=== PATIENT | female | born 1975 | race Caucasian/White ===

== ENCOUNTER 2017-06-07 16:24 | Emergency (ER) | payer OTHER ==
[~2017-06-07] VITALS: Ht 157.5 cm; Wt 49.5 kg
[~2017-06-07 16:24] MED LIST: AMITRIPTYLINE H25 M1 PO; CLOPIDOGREL; FLEXERIL 1010 MG/TAB PO; GABAPENTIN; NEURONTIN300 MG/CAP PO; NITROSTAT0.4 MG/TAB SL; PLAVIX 75MG TAB75 MG PO; THEO-24; TORADOL 10MG TA10 MG PO
[2017-06-07 16:31] VITALS: TEMP 98
[2017-06-07 17:07] LABS: BASO % 0.4 % (0.0-2.0); EOS # 0.2 (0.0-0.7); EOS % 1.3 % (0-4.0); GRAN # 7.4 (1.4-6.5); GRAN % 64.5 % (42.2-75.2); HEMATOCRIT 46.6 % (37.0-47.0); HEMOGLOBIN 16.3 g/dl (12.5-16.0); LYMPH # 3.1 (1.2-3.4); LYMPH % 27.5 % (20.0-51.0); MEAN CELL VOLUME 88 fl (80.0-100.0); MEAN CORPUSCULAR HEMOGLOBIN 31 pg (27.0-31.0); MEAN CORPUSCULAR HGB CONC 35 g/dl (33.0-37.0); MEAN PLATELET VOLUME 8.6 fl (7.4-10.4); MONO # 0.7 (0.1-0.6); MONO % 5.9 % (1.7-9.3); PLATELET COUNT 314 K/mm3 (130-400); RED BLOOD COUNT 5.27 M/mm3 (4.10-5.30); REDCELL DISTRIBUTION WIDTH-CV 12.5 % (11.5-14.5); WHITE BLOOD COUNT 11.4 K/mm3 (4.8-10.8)
[2017-06-07 17:24] LABS: ADJUSTED CALCIUM 9.3 mg/dL (8.4-10.2); ALANINE AMINOTRANSFERASE 21 U/L (9-52); ALBUMIN 4.8 gm/dL (3.5-5.0); ALKALINE PHOSPHATASE 84 U/L (50-136); ANION GAP 12 mmol/L (7-16); BILIRUBIN,TOTAL 0.7 mg/dL (0.0-1.0); BLOOD UREA NITROGEN 11 mg/dL (7-17); C-REACTIVE PROTEIN 0.6 mg/dL (0.0-0.9); CALCIUM 9.9 mg/dL (8.4-10.2); CARBON DIOXIDE 24 mmol/L (22-30); CHLORIDE 105 mmol/L (98-107); CREATININE, serum 0.75 mg/dL (0.52-1.25); GLUCOSE 73 mg/dL (74-106); SODIUM 141 mmol/L (137-145); TOTAL PROTEIN 7.9 gm/dL (6.4-8.2)
[2017-06-07 17:34] LABS: TROPONIN-I < 0.012 ng/mL (0.000-0.034)
[2017-06-07 17:35] LABS: ERYTHROCYTE SEDIMENTATION RATE 1 mm/hr (0-20)
[2017-06-07] MEDS ORDERED: NORVASC 5MG5 MG/TAB PO (17:53)
[2017-06-07 18:07] VITALS: BP 149/103; PULSE 68
== END 2017-06-07 18:07 | disposition home or self-care (01) ==
LOC: COL.ER 16:24
PROVIDERS: Emergency Medicine
DX: I10 Essential (primary) hypertension (principal); R51 Headache; R29.818 Other symptoms and signs involving the nervous system; I25.10 Atherosclerotic heart disease of native coronary artery without angina pectoris; F17.210 Nicotine dependence, cigarettes, uncomplicated

== ENCOUNTER → 2018-11-15 | Outpatient (CLI) | payer OTHER | LOC: COL.RAD 11:12 | DX: G44.209 Tension-type headache, unspecified, not intractable (principal); I10 Essential (primary) hypertension ==

== ENCOUNTER → 2024-06-12 | Outpatient (CLI) | payer OTHER ==
[2024-06-12] VITALS (7 sets, daily range): BP systolic 120–189; BP diastolic 62–97; PULSE 67–115; TEMP 98.3
[~2024-06-12] VITALS: Ht 157.5 cm; Wt 46.0 kg
[~2024-06-12] MED LIST changes: +MOBIC15 MG PO; +NORVASC 5MG5 MG/TAB PO; +Regadenoson 0.08 MG/ML 5 ML SYRINGE IV ONE
== END ==
LOC: COL.VAS 08:13
DX: R07.89 Other chest pain (principal); R60.0 Localized edema; R00.2 Palpitations; R42 Dizziness and giddiness
CPT/HCPCS: A9500-JZ; J2785